=== PATIENT | male | born 1955 | race Caucasian/White ===

== ENCOUNTER 2017-04-15 10:08 | Outpatient (CLI) | payer OTHER ==
--- NOTE | 2017-04-15 12:40 | RAD ---
FOUR VIEWS CERVICAL SPINE: Date: 04-15-17 History: Follow up evaluation post neck surgery on 03-31-17. FINDINGS: C1 to the cervicothoracic junction was seen on the lateral and swimmer's views of the cervical spine . There are post-surgical changes related to anterior cervical fusion with anterior plate and screws transfixing C5-6 and C6-7 levels. Intradiscal prostheses are present at these levels. No hardware c omplication is seen. There is slight anterolisthesis of C3 on C4. There are prominent degenerative changes at this level, predominately on the right. There is narrowing of the C4-5 intervertebral disc space with osteophyt es seen anteriorly. No fracture is seen. The prevertebral soft tissues are within normal limits. Par tial visualization of cardiac pacemaking leads are noted. IMPRESSION: 1. Post-surgical changes related to anterior cervical fusion at the C5-6 and C6-7 levels. 2. Slight anterolisthesis of C3 on C4. POS: [facility]
== END 2017-04-15 10:09 | disposition home or self-care (01) ==
LOC: TBSIIMAG 10:08
PROVIDERS: ATTEND Physician Assistant
DX: M54.2 Cervicalgia (principal); M43.12 Spondylolisthesis, cervical region; Z98.1 Arthrodesis status
CPT/HCPCS: 72040

== ENCOUNTER 2017-05-27 15:03 | Outpatient (CLI) | payer OTHER ==
--- NOTE | 2017-05-27 16:33 | RAD ---
THREE VIEWS CERVICAL SPINE: Date: 05-27-17 Comparison: 04-15-17 History: Cervical region disc degeneration, evaluate cervical spine following surgery. FINDINGS: Incompletely imaged transvenous pacing device noted. Anterior discectomy and fusion hardware is pres ent at the C4-5/C6-7 level, grossly unchanged. Open mouth odontoid view demonstrates a normal appear ing dens and C1-2 articulation. There is mild anterolisthesis of C3 on C4 measuring in the 2-3 mm range, stable. There is disc space narrowing and anterior osteophyte formation at C3-4 and C4-5. The inferior aspect of the post-operative hardware is not fully assessed on the lateral examination secondary to overlying soft tissues. No swimmer's lateral view provided. IMPRESSION: Stable post-operative and degenerative change noted within the cervical spine. Please note that on t he lateral examination the inferior aspect of the fusion plate is not well seen secondary to overlyi ng soft tissues. No swimmer's lateral view is provided. Recommend consideration for follow up swimme r's lateral view to fully assess the post-operative hardware. Code T POS: [facility]
== END 2017-05-27 15:04 | disposition home or self-care (01) ==
LOC: TBSIIMAG 15:03
PROVIDERS: ATTEND Neurological Surgery
DX: M50.30 Other cervical disc degeneration, unspecified cervical region (principal); M47.892 Other spondylosis, cervical region; Z98.890 Other specified postprocedural states
CPT/HCPCS: 72040

== ENCOUNTER 2018-07-01 12:23 | Outpatient (CLI) | payer BC ==
--- NOTE | 2018-07-01 14:02 | RAD ---
THREE VIEWS LEFT SHOULDER: Date: 07-01-18 Comparison: None. History: Left sided shoulder pain. FINDINGS: Incompletely imaged cervical spine contusion hardware noted inferiorly. Partially visualized transven ous pacing device is present. Mild degenerative changes of the left acromioclavicular joint. No widen ing of the AC or CC interspace. No displaced fracture or dislocation. IMPRESSION: No acute osseous abnormality. POS: [facility]
--- NOTE | 2018-07-01 14:18 | RAD ---
3 VIEWS CERVICAL SPINE: Date: 07/01/18 COMPARISON: 05/27/17. HISTORY: Neck pain. FINDINGS: Anterior diskectomy infusion hardware present at C5-6/C6-7, stable. There is mild disc space narrowing and anterior osteophyte formation at C3-4 and C4-5. There is stable degenerative change at the atlantoaxial interspace. No prevertebral soft tissue swell ing. No evidence for hardware failure, displaced fracture, or dislocation. Open-mouth odontoid view d emonstrates a normal appearing dens and C1-2 articulation. \ There is multilevel cervical spine facet and uncovertebral osteophyte formation, right greater than l eft, most prominent at C2-3 and C3-4. IMPRESSION: Postoperative and degenerative change involving the cervical spine as above. POS: [facility]
== END 2018-07-01 12:24 | disposition home or self-care (01) ==
LOC: BICRAD 12:23
PROVIDERS: ATTEND Family Medicine
DX: M25.572 Pain in left ankle and joints of left foot (principal); M79.12 Myalgia of auxiliary muscles, head and neck; G60.9 Hereditary and idiopathic neuropathy, unspecified; M47.812 Spondylosis without myelopathy or radiculopathy, cervical region; Z98.890 Other specified postprocedural states
CPT/HCPCS: 72040

== ENCOUNTER 2018-08-06 11:36 | Outpatient (CLI) | payer OTHER ==
--- NOTE | 2018-08-06 13:27 | MRI ---
MRI CERVICAL SPINE: HISTORY: Cervical radicular pain. TECHNIQUE: Multiplanar, multisequence noncontrast-enhanced MRI images of cervical spine obtained. RADIOGRAPHIC FINDINGS: Images demonstrate ACDF with anterior fusion of the C5, 6, and 7 vertebral levels. The spinal cord is unremarkable with no evidence of cord masses. C1-2: Unremarkable. C2-3: There is a broad-based central disk-osteophyte complex resulting in minimal compression of the thecal sac. There is moderate to severe bilateral neural foraminal narrowing due to uncovertebral o steophyte hypertrophy. The neural foraminal stenosis is slightly worse on the right and similar in a ppearance on the left. C3-4: There is a broad-based disk-osteophyte complex centrally compressing the thecal sac resulting in a moderate degree of central stenosis. There is moderate to severe bilateral C3-4 neural foramina l narrowing due to uncovertebral osteophyte hypertrophy. C4-5: There is a broad-based disk-osteophyte complex seen in the right C4-5 paracentral region compr essing the thecal sac resulting in moderate cord compression. There is mild right and no significant left-sided neural foraminal narrowing. C5-6: There is a broad-based disk-osteophyte complex centrally resulting in minimal but not signific ant degree of central stenosis. Mild right and moderate to severe left C5-6 neural foraminal narrowi ng seen due to uncovertebral osteophyte hypertrophy. C6-7: There is disk desiccation. There is a broad-based disk-osteophyte complex centrally compressi ng the thecal sac and resulting in mild compression of the spinal cord. There is a moderate right an d mild to moderate left-sided C6-7 neural foraminal narrowing. C7-T1: Unremarkable. IMPRESSION: C5, 6, and 7 anterior cervical diskectomy and fusion with central and neural foraminal narrowing as d escribed above. POS: [facility]
== END 2018-08-06 11:37 | disposition home or self-care (01) ==
LOC: MRI 11:36
PROVIDERS: ATTEND Neurological Surgery
DX: M54.12 Radiculopathy, cervical region (principal); M48.02 Spinal stenosis, cervical region; Z98.1 Arthrodesis status
CPT/HCPCS: 72141

== ENCOUNTER 2018-08-31 15:57 | Outpatient (CLI) | payer OTHER ==
[2018-08-31 16:29] LABS: Mean Corpuscular Hemoglobin 31.7 pg (27.0-31.0); Mean Corpuscular Volume 93.4 fL (78.0-98.0); Mean Platelet Volume 7.3 fL (7.4-10.4); Platelet Count 199 thou/uL (130-400); RBC Distribution Width 11.7 % (11.5-14.5); Red Blood Cell (RBC) Count 4.72 mill/uL (4.70-6.10); White Blood Cell (WBC) Count 10.5 thou/uL (4.8-10.8)
[2018-08-31 16:58] LABS: Anion Gap 14 mmol/L (10-20); BUN (Urea Nitrogen) 13 mg/dL (8.4-25.7); Calc. Creatinine Clearance 0 mL/min (70-130); Calcium 9.7 mg/dL (7.8-10.44); Carbon Dioxide 23 mmol/L (23-31); Chloride 109 mmol/L (98-107); Estimated GFR-MDRD 73; Glucose 110 mg/dL (80-115); Potassium 4.3 mmol/L (3.5-5.1); Sodium 142 mmol/L (136-145)
== END 2018-08-31 15:58 | disposition home or self-care (01) ==
LOC: LABBT 15:57
PROVIDERS: ATTEND Neurological Surgery
DX: Z01.818 Encounter for other preprocedural examination (principal); M54.12 Radiculopathy, cervical region
CPT/HCPCS: 80048; 85027; 93005; 93010

== ENCOUNTER 2018-08-31 16:00 | Inpatient (IN) | payer OTHER ==
[2018-08-31 16:18] VITALS: BMI 31.7
[2018-09-07] MEDS ORDERED: Rocuronium Bromide 10 MG/ML (10ML VIAL) ONE (11:31)
[2018-09-07] MEDS ORDERED: Ondansetron PF 4 MG/2 ML Vial ONE (11:31)
[2018-09-07] MEDS ORDERED: PROPOFOL 200 MG/20 ML VIAL ONE (11:31)
[2018-09-07] MEDS ORDERED: Glycopyrrolate 0.2 MG/ML 5 ML SYRINGE ONE (11:31)
[2018-09-07] MEDS ORDERED: Sodium Chloride 0.9% 10 ML ONE (12:21)
[2018-09-07] MEDS ORDERED: Fentanyl 250 MCG/5 ML VIAL ONE (12:26)
[2018-09-07] MEDS ORDERED: Ondansetron HCl/PF 4 MG/2 ML Vial IVP PRN (13:47)
[2018-09-07] MEDS ORDERED: Promethazine HCl 25 MG/ML VIAL SLOW IVP PRN (13:47)
[2018-09-07] MEDS ORDERED: Promethazine HCl 25 MG/ML VIAL IM PRN ×2 (13:47→16:56)
[2018-09-07] MEDS ORDERED: Fentanyl 100 MCG/2 ML VIAL ONE ×2 (14:10→14:55)
[2018-09-07] MEDS ORDERED: Promethazine HCl 25 MG/ML VIAL ONE (15:45)
--- NOTE | 2018-09-07 16:23 | OP ---
DATE OF PROCEDURE: 09/07/2018 [employer]: [employer]. PROCEDURES: 1. Removal of hardware, C5 through C7. 2. Exploration of spinal fusion, C5 through C7. 3. Anterior cervical diskectomy, C4-C5. 4. Interbody arthrodesis. 5. Intervertebral biomechanical device. 6. Local morselized autograft. 7. Demineralized bone matrix. 8. Anterior titanium instrumentation C4 through C7. DESCRIPTION OF PROCEDURE: The patient was brought to the operating room and intubated, positioned supine with the head in modest extension on a gel-filled donut. An incision was made in the right precervical area and dissected medial to the sternocleidomastoid muscle. We identified the previous plate. This was removed without difficulty and then the region explored and found not to be fused. We next placed distraction across C4-C5, debrided osteophytes, and completely removed the intervertebral disk. The bony endplates were then decorticated for the purpose of arthrodesis and appropriate-sized intervertebral biomechanical device was brought into the field with demineralized bone matrix, local morselized autograft, and tapped in place securely at C4-C5. Next, an anterior plate was brought onto the field and secured to C4, C5, C6, and C7 using two 14-mm screws at each level. The wound was then extensively irrigated and maximum hemostasis was secured. The wound was closed in anatomic layers over drain. Job ID: [id number]
[2018-09-07] MEDS ORDERED: tiZANidine HCl 4 MG TAB PO PRN (16:56)
[2018-09-07] MEDS ORDERED: Milk Of Magnesia 30 ML UDCUP PO PRN (16:56)
[2018-09-07] MEDS ORDERED: Acetaminophen 325 MG TAB PO PRN (16:56)
[2018-09-07] MEDS ORDERED: Acetaminophen 650 MG Suppository PR PRN (16:56)
[2018-09-07] MEDS ORDERED: Promethazine HCl 12.5 MG SUPP PR PRN (16:56)
[2018-09-07] MEDS ORDERED: Ondansetron PF 4 MG/2 ML Vial IVP PRN (16:56)
[2018-09-07] MEDS ORDERED: Acetaminophen/Codeine 30-300mg Tablet PO PRN ×2 (16:56)
[2018-09-07] MEDS ORDERED: Morphine 4 MG/ML VIAL SLOW IVP PRN (16:56)
[2018-09-07] MEDS ORDERED: Promethazine 25 MG TAB PO PRN (16:56)
[2018-09-07] MEDS ORDERED: Mag-Al 1200 mg/1200 mg/30 ML UDCUP PO PRN (16:56)
[2018-09-07] MEDS ORDERED: Calcium Polycarbophil 625 MG TAB PO PRN (17:02)
[2018-09-07] MEDS ORDERED: Meloxicam 15 MG TAB PO PRN (17:04)
--- NOTE | 2018-09-07 18:16 | PDOC.FPRHP ---
- History of Present Illness Chief Complaint: consult for medical management History of Present Illness: 62 y/o M with HLD, SSS, seen today after cervical spinal surgery. Does have a history of cervical surgery in the past x1. Our service was consulted for medical management. Noted pt is on Lipitor 40mg daily, Setia QOD, Lisinopril, and Mg at night for restless leg syndrome. He currently complains of neck pain post op. He states he does not take medications for SSS. He denies any other problems. Denies CP, SOB, fevers chills. VS have been stable on floor on Room Oxygenation. - Allergies/Adverse Reactions Allergies Allergy/AdvReac Type Severity Reaction Status Date / Time codeine Allergy Intermediate HEAD Verified 08/31/18 16:15 PRESSURE, NAUSEA diphenhydramine HCl Allergy Intermediate AGITATION Verified 08/31/18 16:15 [From Benadryl] hydrocodone Allergy Intermediate HEAD Verified 08/31/18 16:15 PRESSURE/ NAUSEA tramadol Allergy Intermediate NAUSEA/DIZZINESS, Verified 08/31/18 16:15 HEAD PRESSURE - Home Medications Medication Instructions Recorded Confirmed Type Multivitamin [Multi-Vitamin Daily] 1 tablet PO DAILY 01/24/14 08/31/18 History Cholecalciferol (Vitamin D3) 5,000 unit PO DAILY 07/12/15 08/31/18 History [Vitamin D3] Cyanocobalamin (Vitamin B-12) 5,000 mcg PO DAILY 07/12/15 08/31/18 History [Vitamin B12] Fish Oil 1,000 mg PO DAILY 07/12/15 08/31/18 History Calcium Polycarbophil [Fiber 1,250 mg PO DAILY PRN 03/19/17 08/31/18 History Tablets] Meloxicam 15 mg PO PRN PRN 03/19/17 08/31/18 History RABEprazole Sodium [Aciphex] 20 mg PO DAILY 03/19/17 08/31/18 History Ezetimibe [Zetia] 10 mg PO Q2D 08/31/18 08/31/18 History Lisinopril 20 mg PO DAILY 08/31/18 08/31/18 History Simvastatin [Zocor] 40 mg PO Q2D 08/31/18 08/31/18 History - History PMHx: PSHx: FHx: Social: - Review of Systems General: denies: fever/chills, weight/appetite/sleep changes Eyes: denies: eye pain, vision changes ENT: denies: nasal congestion, rhinorrhea Respiratory: denies: cough, congestion Cardiovascular: denies: chest pain, palpitation, edema Gastrointestinal: denies: nausea, vomiting, diarrhea Genitourinary: denies: dysuria Skin: denies: rashes Musculoskeletal: reports: pain (neck). denies: tenderness Neurological: denies: numbness, syncope Psychological: denies: anxiety, depression - Vital signs BP: 138/78 HR: 97 Tmax: 97.5 Pox: 94% on RA - Physical Exam Constitutional: NAD, awake, alert and oriented, well developed HEENT: normocephalic and atraumatic, PERRLA, EOMI Neck: other (limited ROM 2/2 surgery, anterior bandage in place.) Chest: no-tender to palpation, no lesions Heart: RRR, normal S1/S2, no murmurs/rubs/gallops Lungs: CTAB, no respiratory distress, good air movement Abdomen: soft, non-tender, bowel sounds present Musculoskeletal: normal structure Neurological: no focal deficit, CN II-XII intact, normal sensation Skin: no rash/lesions, good turgor, capillary refill <2 seconds FMR H&P: A/P - Problem List (1) Hypertension Current Visit: Yes Status: Acute Code(s): I10 - ESSENTIAL (PRIMARY) HYPERTENSION (2) Hyperlipidemia Current Visit: Yes Status: Acute Code(s): E78.5 - HYPERLIPIDEMIA, UNSPECIFIED (3) GERD (gastroesophageal reflux disease) Current Visit: No Status: Chronic Code(s): K21.9 - GASTRO-ESOPHAGEAL REFLUX DISEASE WITHOUT ESOPHAGITIS Qualifiers: Esophagitis presence: without esophagitis Qualified Code(s): K21.9 - Gastro -esophageal reflux disease without esophagitis (4) Sick sinus syndrome Current Visit: No Status: Chronic Code(s): I49.5 - SICK SINUS SYNDROME - Plan 62 y/o M admitted for surgical intervention of cervical spine. 1. POD #0 after C-Spine surgery: Pain control per surgery. Tolerating regular diet well. 2. HTN: Controlled: will resume Lisinopril in AM 3. HLD: Recommend resuming home dose of Atorvastatin 40mg daily upon discharge. 4. Sick Sinus Syndrome: No acute issues and not on any medications. Continue to monitor. 5. GERD: Diet controlled. Medications PRN DISPO: pt cleared from our point of view for discharge tomorrow per surgery. Home medications reviewed and resumed.
[2018-09-07] MEDS: Ketorolac Tromethamine 30 MG/ML VIAL IVP SCH ×2 (18:36→23:36)
[2018-09-07] MEDS: Sodium Chloride 0.9% 1,000 ML IV SCH (20:02)
[2018-09-07] MEDS: CEFAZOLIN 2 GM in Premix Bag 1 BAG IVPB SCH (20:02)
[2018-09-07] MEDS ORDERED: Atorvastatin Calcium 20 MG TAB PO SCH (21:00)
[2018-09-08] MEDS: CEFAZOLIN 2 GM in Premix Bag 1 BAG IVPB SCH (04:11)
[2018-09-08] MEDS: Ketorolac Tromethamine 30 MG/ML VIAL IVP SCH (06:28)
[2018-09-08] MEDS: Sodium Chloride 0.9% 1,000 ML IV SCH (06:28)
--- NOTE | 2018-09-08 08:12 | PDOC.FM ---
- Subjective Subjective: Seen at bedside this morning sitting comfortably eating breakfast. Complains of minimal surgical site pain. Denies all other symptoms in ROS. No acute event over night. - Objective MAR Reviewed: Yes Vital Signs & Weight: Vital Signs (12 hours) Temp Pulse Resp BP Pulse Ox 09/08/18 04:16 98.1 F 92 16 135/81 94 L 09/07/18 23:33 97.4 F L 90 18 126/78 94 L Weight Weight 97.522 kg I&O: 09/07/18 09/08/18 09/09/18 06:59 06:59 06:59 Intake Total 1200 Output Total 45 Balance 1155 Phys Exam - Physical Examination Constitutional: NAD HEENT: sclera anicteric Pain with ROM. Right anterior surgical wound dressed with drain in place Respiratory: clear to auscultation bilateral Cardiovascular: RRR Gastrointestinal: soft, non-tender, no distention Musculoskeletal: no edema Neurological: moves all 4 limbs Psychiatric: A&O x 3 Dx/Plan (1) Hyperlipidemia Code(s): E78.5 - HYPERLIPIDEMIA, UNSPECIFIED Status: Acute (2) Hypertension Code(s): I10 - ESSENTIAL (PRIMARY) HYPERTENSION Status: Acute (3) GERD (gastroesophageal reflux disease) Code(s): K21.9 - GASTRO-ESOPHAGEAL REFLUX DISEASE WITHOUT ESOPHAGITIS Status: Chronic Qualifiers: Esophagitis presence: without esophagitis Qualified Code(s): K21.9 - Gastro -esophageal reflux disease without esophagitis (4) Sick sinus syndrome Code(s): I49.5 - SICK SINUS SYNDROME Status: Chronic - Plan Plan: 62 y/o M admitted for surgical intervention of cervical spine. 1. POD #1 after C-Spine surgery: Pain is controlled, pt tolerating regular diet well. 2. HTN: Controlled: restart home meds 3. HLD: Recommend resuming home dose of Atorvastatin 40mg daily upon discharge. 4. Sick Sinus Syndrome: No acute issues and not on any medications. Continue to monitor. 5. GERD: Diet controlled. Medications PRN DISPO: pt ready to dc from medical perspective. Home medications reviewed and resumed. Addendum - Attending - Attending Attestation Date/Time: 09/08/18 1101 I discussed the management with Dr. Thayer. Patient discharged before I saw him. I agree with the History, Examination, Assessment and Plan documented above with any addition or exceptions noted below.
[2018-09-08 08:26] VITALS: BP 120/75; TEMP 97.8
--- NOTE | 2018-09-08 08:40 | DIS ---
DATE OF ADMISSION: 09/07/2018 DATE OF DISCHARGE: 09/08/2018 HISTORY OF PRESENT ILLNESS: The patient is a 62-year-old male who underwent removal of hardware, extension of cervical fusion at C4-C5. Intraoperatively, he had a BRIANA drain placed, which had 45 mL of output overnight. The patient was transitioned to [facility] where his pain was well controlled with p.o. medications, he was tolerating regular diet, and voiding appropriately. The patient is awake, alert, comfortable this morning. He has free active range of motion of all extremities. No focal motor weakness. Sensation intact to light touch. Incision is soft, dry, intact. PLAN: Dismiss the patient to home. Discussed home care precautions. We will remove BRIANA drain prior to dismissal. Job ID: [id number]
[2018-09-08] MEDS ORDERED: Lisinopril 20 MG TAB PO SCH (09:00)
[2018-09-08] MEDS ORDERED: Cyanocobalamin (Vitamin B-12) 1,000 MCG TAB PO SCH (09:00)
[2018-09-08] MEDS ORDERED: Fish Oil 1,000 MG CAP PO SCH (09:00)
[2018-09-08] MEDS ORDERED: Multivit, Therapeutic 1 TAB PO SCH (09:00)
[2018-09-08] MEDS ORDERED: Ezetimibe 10 MG TAB PO SCH (09:00)
== END 2018-09-08 08:57 | disposition home or self-care (01) | DRG 30 ==
LOC: SURG A 09-07 08:44 → SJJU 09-07 15:47
PROVIDERS: ADMIT Neurological Surgery; ATTEND Neurological Surgery
PROC: 0RG1070 Fusion of Cervical Vertebral Joint with Autologous Tissue Substitute, Anterior Approach, Anterior Column, Open Approach (ICD-10-PCS; principal; 2018-09-07)
PROC: 0RT30ZZ Resection of Cervical Vertebral Disc, Open Approach (ICD-10-PCS; 2018-09-07)
PROC: 0RP30JZ Removal of Synthetic Substitute from Cervical Vertebral Disc, Open Approach (ICD-10-PCS; 2018-09-07)
DX: M54.12 Radiculopathy, cervical region (principal); I10 Essential (primary) hypertension; E78.5 Hyperlipidemia, unspecified; K21.9 Gastro-esophageal reflux disease without esophagitis; I49.5 Sick sinus syndrome; Z88.5 Allergy status to narcotic agent; Z88.8 Allergy status to other drugs, medicaments and biological substances; Z95.0 Presence of cardiac pacemaker
CPT/HCPCS: 76000; C1713; C1776; J1885; J2270; J2405; J2550; J2704; J3010; J3490

== ENCOUNTER 2018-09-22 10:23 | Outpatient (CLI) | payer OTHER ==
--- NOTE | 2018-09-22 12:32 | RAD ---
EXAM: CERVICAL SPINE THREE VIEWS: History: Cervical radiculopathy. Cervical radicular pain. Comparison: 07-01-18 FINDINGS: Anterior cervical fusion changes are noted at C4, C5, C6, and C7. No abnormal prevertebral soft tissu e swelling. No significant malalignment. Portions of C1 and odontoid are obscured on the AP open mout h view and C7 and T1 are partially obscured on the lateral views. IMPRESSION: Anterior cervical fusion changes at C4 through C7. No significant malalignment. POS: [facility]
== END 2018-09-22 10:24 | disposition home or self-care (01) ==
LOC: TBSIIMAG 10:23
PROVIDERS: ATTEND Neurological Surgery
DX: M54.12 Radiculopathy, cervical region (principal); Z98.1 Arthrodesis status
CPT/HCPCS: 72040

== ENCOUNTER 2018-11-04 13:46 | Outpatient (CLI) | payer OTHER ==
--- NOTE | 2018-11-04 14:21 | RAD ---
Exam: 3 views cervical spine HISTORY: Disc degeneration. Surgery follow-up. Comparison 09/22/2018 FINDINGS: Predental space is normal. No prevertebral soft tissue swelling. Stable cervical fusion ivon nges from C4 through C7. Stable disc prosthesis. Stable straightening of normal cervical lordosis. No malalignment. In the AP projection, stable facet hypertrophy. Open-mouth projection is unchanged. IMPRESSION: Stable cervical fusion from C4 through C7.
== END 2018-11-04 13:47 | disposition home or self-care (01) ==
LOC: TBSIIMAG 13:46
PROVIDERS: ATTEND Neurological Surgery
DX: M50.30 Other cervical disc degeneration, unspecified cervical region (principal); Z98.1 Arthrodesis status
CPT/HCPCS: 72040

== ENCOUNTER 2022-01-03 14:02 | Outpatient (CLI) | payer MEDICARE | END 2022-01-03 14:03 | disposition home or self-care (01) | LOC: LABBT 14:02 | PROVIDERS: ATTEND Ophthalmology Retina Specialist | DX: H35.372 Puckering of macula, left eye (principal); Z20.822 Contact with and (suspected) exposure to COVID-19 | CPT/HCPCS: U0003; U0005 ==

== ENCOUNTER 2022-01-08 06:03 | Day surgery (SDC) | payer MEDICARE ==
[2022-01-07 09:16] VITALS: BMI 32.5
[~2022-01-08 06:03] MED LIST: EPINEPHrine 0.3 MG in Ophthalmic Irrigation Solution 500 ML IRR SCH
[2022-01-08] MEDS ORDERED: Phenylephrine 2.5% Ophth Soln 5 ML BOT ONE (07:05)
[2022-01-08] MEDS ORDERED: Cyclopentolate 1% Opth Drop 2 ML BOT ONE (07:05)
[2022-01-08] MEDS ORDERED: Midazolam HCl 2 mg/2 ml Vial ONE (07:56)
[2022-01-08] MEDS ORDERED: fentaNYL Citrate/PF 100 MCG/2 ML SYRINGE ONE (07:56)
[2022-01-08] MEDS ORDERED: PROPOFOL 200 MG/20 ML VIAL ONE (08:15)
[2022-01-08] MEDS ORDERED: CEFAZOLIN 1 GM VIAL ONE (08:15)
[2022-01-08] MEDS ORDERED: Triamcinolone 40 MG/ML VIAL ONE (08:15)
[2022-01-08] MEDS ORDERED: Lidocaine 4% PF 5 ML AMP ONE (08:15)
[2022-01-08] MEDS ORDERED: Lidocaine 1% PF 5 ML VIAL ONE (08:15)
[2022-01-08] MEDS ORDERED: Indocyanine Green 25 MG/10 ML VIAL ONE (08:15)
[2022-01-08] MEDS ORDERED: Maxitrol 0.1% Opth Oint 3.5 GM TUBE ONE (08:15)
[2022-01-08] MEDS ORDERED: Bupivacaine 0.75% 10 ML VIAL ONE (08:15)
== END 2022-01-08 09:15 | disposition home or self-care (01) ==
LOC: SDC 06:03
PROVIDERS: ATTEND Ophthalmology Retina Specialist
PROC: 08T53ZZ Resection of Left Vitreous, Percutaneous Approach (ICD-10-PCS; principal; 2022-01-08)
PROC: 08NF3ZZ Release Left Retina, Percutaneous Approach (ICD-10-PCS; 2022-01-08)
DX: H35.372 Puckering of macula, left eye (principal); Z79.899 Other long term (current) drug therapy; Z88.5 Allergy status to narcotic agent; Z88.8 Allergy status to other drugs, medicaments and biological substances; Z95.0 Presence of cardiac pacemaker; Z98.1 Arthrodesis status
CPT/HCPCS: J0171; J0690; J2250; J2704; J3301; J3490

== ENCOUNTER 2022-07-08 09:40 | Inpatient (IN) | payer MEDICARE ==
[2022-07-08 10:41] LABS: #Eosinphils 0.2 thou/uL (0.0-0.7); #Lymphocytes 0.9 thou/uL (1.20-3.40); #Monocytes 0.6 thou/uL (0.11-0.59); #Neutrophils 9.2 thou/uL (1.40-6.50); %Basophils 0.1 % (0.0-1.0); %Eosinophils 1.5 % (0.0-10.0); %Lymphocytes 8.5 % (21.0-51.0); %Monocytes 5.4 % (0.0-10.0); %Neutrophils 84.6 % (42.0-75.0); Hemoglobin 14.6 g/dL (14.0-18.0); Mean Corpuscular HGB CONC 32.8 g/dL (32.0-36.0); Mean Corpuscular Hemoglobin 30.9 pg (27.0-31.0); Mean Corpuscular Volume 94.2 fl (78.0-98.0); Mean Platelet Volume 7.2 fL (7.4-10.4); Platelet Count 200 10x3/uL (130-400); Red Blood Cell (RBC) Count 4.74 mill/uL (4.70-6.10); White Blood Cell (WBC) Count 10.9 10x3/uL (4.8-10.8)
[2022-07-08 11:00] LABS: ALT (SGPT) 59 U/L (8-55); AST (SGOT) 40 U/L (5-34); Alkaline Phosphatase 69 U/L (40-110); Anion Gap 15 mmol/L (10-20); BUN (Urea Nitrogen) 19 mg/dL (8.4-25.7); Bilirubin, Total 1.2 mg/dL (0.2-1.2); Calc. Creatinine Clearance 0 mL/min (70-130); Calcium 9.5 mg/dL (7.8-10.44); Carbon Dioxide 20 mmol/L (23-31); Chloride 107 mmol/L (98-107); Estimated GFR 97; Globulin 3.5 g/dL (2.4-3.5); Glucose 138 mg/dL (80-115); Lipase 20 U/L (8-78); Magnesium 1.8 mg/dL (1.6-2.6); Potassium 3.6 mmol/L (3.5-5.1); Protein, Total 6.5 g/dL (5.8-8.1); Sodium 138 mmol/L (136-145)
[2022-07-08] MEDS ORDERED: Dexamethasone 10 MG/ML VIAL ONE (11:30)
[2022-07-08 13:20] VITALS: BMI 28.8
[2022-07-08] MEDS ORDERED: REMDESIVIR 200 MG in Sodium Chloride 0.9% 250 ML 210 ML IV SCH (13:30)
[2022-07-08 16:12] LABS: SARS-CoV-2 NAA Rapid Test DETECTED (NotDetected)
[2022-07-08] MEDS: Icosapent Ethyl 1 GM CAPSULE PO SCH (19:51)
[2022-07-09 07:08] LABS: Hemoglobin 14.9 g/dL (14.0-18.0); Mean Corpuscular HGB CONC 33.1 g/dL (32.0-36.0); Mean Corpuscular Hemoglobin 31.4 pg (27.0-31.0); Mean Corpuscular Volume 94.7 fl (78.0-98.0); Mean Platelet Volume 7.1 fL (7.4-10.4); Platelet Count 210 10x3/uL (130-400); Red Blood Cell (RBC) Count 4.76 mill/uL (4.70-6.10); White Blood Cell (WBC) Count 10.3 10x3/uL (4.8-10.8)
[2022-07-09 07:12] LABS: ALT (SGPT) 44 U/L (8-55); AST (SGOT) 27 U/L (5-34); Alkaline Phosphatase 68 U/L (40-110); Anion Gap 16 mmol/L (10-20); BUN (Urea Nitrogen) 17 mg/dL (8.4-25.7); Bilirubin, Total 0.9 mg/dL (0.2-1.2); Calc. Creatinine Clearance 112 mL/min (70-130); Calcium 9.9 mg/dL (7.8-10.44); Carbon Dioxide 19 mmol/L (23-31); Chloride 107 mmol/L (98-107); Estimated GFR 97; Globulin 3.8 g/dL (2.4-3.5); Glucose 139 mg/dL (80-115); Protein, Total 6.8 g/dL (5.8-8.1); Sodium 138 mmol/L (136-145)
[2022-07-09] MEDS: REMDESIVIR 100 MG in Sodium Chloride 0.9% 250 ML 230 ML IV SCH (07:47)
[2022-07-09] MEDS: Lisinopril 20 MG TAB PO SCH (08:36)
[2022-07-09] MEDS: Dexamethasone 4 MG TAB PO SCH (08:37)
[2022-07-09] MEDS: Enoxaparin Sodium 40 MG/0.4 ML SYRINGE SC SCH (08:37)
[2022-07-09] MEDS: Ezetimibe 10 MG TAB PO SCH (08:37)
[2022-07-09] MEDS: Icosapent Ethyl 1 GM CAPSULE PO SCH ×2 (08:38→20:18)
[2022-07-09 11:17] LABS: Band 5 % (5-11); Lymphocytes 5 % (21-51); MDiff Complete? YES; Monocytes 2 % (0-10); Neutrophil 87 % (42-75); RBC Morphology Normal; Reactive Lymphocytes 1 % (0-10)
[2022-07-10 07:19] LABS: #Basophils 0.2 thou/uL (0.0-0.2); #Lymphocytes 0.8 thou/uL (1.20-3.40); #Monocytes 0.7 thou/uL (0.11-0.59); %Basophils 1.1 % (0.0-1.0); %Eosinophils 0.1 % (0.0-10.0); %Lymphocytes 4.6 % (21.0-51.0); %Monocytes 4.4 % (0.0-10.0); %Neutrophils 89.9 % (42.0-75.0); Hemoglobin 14.1 g/dL (14.0-18.0); Mean Corpuscular HGB CONC 32.9 g/dL (32.0-36.0); Mean Corpuscular Hemoglobin 31.2 pg (27.0-31.0); Mean Corpuscular Volume 94.7 fl (78.0-98.0); Mean Platelet Volume 7.6 fL (7.4-10.4); Platelet Count 237 10x3/uL (130-400); RBC Distribution Width 11.7 % (11.5-14.5); Red Blood Cell (RBC) Count 4.53 mill/uL (4.70-6.10); White Blood Cell (WBC) Count 16.6 10x3/uL (4.8-10.8)
[2022-07-10 07:37] LABS: ALT (SGPT) 38 U/L (8-55); AST (SGOT) 22 U/L (5-34); Albumin 2.9 g/dL (3.4-4.8); Alkaline Phosphatase 61 U/L (40-110); Anion Gap 16 mmol/L (10-20); BUN (Urea Nitrogen) 20 mg/dL (8.4-25.7); Bilirubin, Total 0.7 mg/dL (0.2-1.2); Calc. Creatinine Clearance 109 mL/min (70-130); Calcium 9.2 mg/dL (7.8-10.44); Carbon Dioxide 16 mmol/L (23-31); Chloride 109 mmol/L (98-107); Estimated GFR 96; Globulin 3.5 g/dL (2.4-3.5); Glucose 127 mg/dL (80-115); Potassium 4.1 mmol/L (3.5-5.1); Protein, Total 6.4 g/dL (5.8-8.1); Sodium 137 mmol/L (136-145)
[2022-07-10] MEDS: Lisinopril 20 MG TAB PO SCH (07:45)
[2022-07-10] MEDS: REMDESIVIR 100 MG in Sodium Chloride 0.9% 250 ML 230 ML IV SCH (07:45)
[2022-07-10] MEDS: Enoxaparin Sodium 40 MG/0.4 ML SYRINGE SC SCH (08:23)
[2022-07-10] MEDS: Dexamethasone 4 MG TAB PO SCH (08:23)
[2022-07-10] MEDS: Icosapent Ethyl 1 GM CAPSULE PO SCH ×2 (08:23→19:54)
[2022-07-10] MEDS: Ezetimibe 10 MG TAB PO SCH (08:23)
[2022-07-11 06:26] LABS: #Monocytes 0.9 thou/uL (0.11-0.59); #Neutrophils 10.8 thou/uL (1.40-6.50); %Eosinophils 0.2 % (0.0-10.0); %Lymphocytes 7.7 % (21.0-51.0); %Monocytes 6.9 % (0.0-10.0); %Neutrophils 85.3 % (42.0-75.0); Hemoglobin 13.9 g/dL (14.0-18.0); Mean Corpuscular HGB CONC 33.2 g/dL (32.0-36.0); Mean Corpuscular Hemoglobin 31.4 pg (27.0-31.0); Mean Corpuscular Volume 94.6 fl (78.0-98.0); Mean Platelet Volume 7.3 fL (7.4-10.4); Platelet Count 236 10x3/uL (130-400); RBC Distribution Width 11.7 % (11.5-14.5); Red Blood Cell (RBC) Count 4.44 mill/uL (4.70-6.10); White Blood Cell (WBC) Count 12.7 10x3/uL (4.8-10.8)
[2022-07-11 06:43] LABS: ALT (SGPT) 37 U/L (8-55); AST (SGOT) 18 U/L (5-34); Albumin 2.9 g/dL (3.4-4.8); Alkaline Phosphatase 62 U/L (40-110); Anion Gap 15 mmol/L (10-20); BUN (Urea Nitrogen) 23 mg/dL (8.4-25.7); Bilirubin, Total 0.9 mg/dL (0.2-1.2); Calc. Creatinine Clearance 113 mL/min (70-130); Calcium 9.3 mg/dL (7.8-10.44); Carbon Dioxide 20 mmol/L (23-31); Chloride 108 mmol/L (98-107); Estimated GFR 97; Globulin 3.3 g/dL (2.4-3.5); Glucose 105 mg/dL (80-115); Potassium 3.9 mmol/L (3.5-5.1); Protein, Total 6.2 g/dL (5.8-8.1); Sodium 139 mmol/L (136-145)
[2022-07-11] MEDS: Dexamethasone 4 MG TAB PO SCH (08:21)
[2022-07-11] MEDS: Lisinopril 20 MG TAB PO SCH (08:22)
[2022-07-11] MEDS: Ezetimibe 10 MG TAB PO SCH (08:22)
[2022-07-11] MEDS: Enoxaparin Sodium 40 MG/0.4 ML SYRINGE SC SCH (08:23)
[2022-07-11] MEDS: Icosapent Ethyl 1 GM CAPSULE PO SCH ×2 (08:35→21:58)
[2022-07-12 07:22] LABS: #Lymphocytes 1.4 thou/uL (1.20-3.40); #Monocytes 0.8 thou/uL (0.11-0.59); #Neutrophils 8.1 thou/uL (1.40-6.50); %Basophils 0.2 % (0.0-1.0); %Eosinophils 0.4 % (0.0-10.0); %Lymphocytes 13.5 % (21.0-51.0); %Monocytes 7.6 % (0.0-10.0); %Neutrophils 78.2 % (42.0-75.0); Hemoglobin 14.4 g/dL (14.0-18.0); Mean Corpuscular HGB CONC 32.7 g/dL (32.0-36.0); Mean Corpuscular Hemoglobin 31.6 pg (27.0-31.0); Mean Corpuscular Volume 96.5 fl (78.0-98.0); Mean Platelet Volume 7.9 fL (7.4-10.4); Platelet Count 212 10x3/uL (130-400); RBC Distribution Width 12.1 % (11.5-14.5); Red Blood Cell (RBC) Count 4.56 mill/uL (4.70-6.10); White Blood Cell (WBC) Count 10.4 10x3/uL (4.8-10.8)
[2022-07-12 07:42] LABS: ALT (SGPT) 32 U/L (8-55); AST (SGOT) 22 U/L (5-34); Albumin 2.8 g/dL (3.4-4.8); Alkaline Phosphatase 60 U/L (40-110); Anion Gap 15 mmol/L (10-20); BUN (Urea Nitrogen) 22 mg/dL (8.4-25.7); Bilirubin, Total 0.9 mg/dL (0.2-1.2); Calc. Creatinine Clearance 109 mL/min (70-130); Calcium 9.3 mg/dL (7.8-10.44); Carbon Dioxide 17 mmol/L (23-31); Chloride 110 mmol/L (98-107); Estimated GFR 96; Globulin 3.5 g/dL (2.4-3.5); Glucose 89 mg/dL (80-115); Potassium 4.8 mmol/L (3.5-5.1); Protein, Total 6.3 g/dL (5.8-8.1); Sodium 137 mmol/L (136-145)
[2022-07-12] MEDS: Dexamethasone 4 MG TAB PO SCH (09:26)
[2022-07-12] MEDS: Lisinopril 20 MG TAB PO SCH (09:26)
[2022-07-12] MEDS: BARICITINIB 2 MG TAB PO SCH (09:27)
[2022-07-12] MEDS: Enoxaparin Sodium 40 MG/0.4 ML SYRINGE SC SCH (09:27)
[2022-07-12] MEDS: Ezetimibe 10 MG TAB PO SCH (09:27)
[2022-07-12] MEDS: Icosapent Ethyl 1 GM CAPSULE PO SCH ×2 (09:27→20:43)
[2022-07-13 06:18] LABS: #Lymphocytes 1.5 thou/uL (1.20-3.40); #Monocytes 0.7 thou/uL (0.11-0.59); %Eosinophils 0.4 % (0.0-10.0); %Lymphocytes 16.3 % (21.0-51.0); %Monocytes 7.9 % (0.0-10.0); %Neutrophils 75.4 % (42.0-75.0); Hemoglobin 13.8 g/dL (14.0-18.0); Mean Corpuscular HGB CONC 33.3 g/dL (32.0-36.0); Mean Corpuscular Hemoglobin 31.4 pg (27.0-31.0); Mean Corpuscular Volume 94.3 fl (78.0-98.0); Mean Platelet Volume 7.5 fL (7.4-10.4); Platelet Count 237 10x3/uL (130-400); RBC Distribution Width 11.8 % (11.5-14.5); White Blood Cell (WBC) Count 9.3 10x3/uL (4.8-10.8)
[2022-07-13 06:44] LABS: ALT (SGPT) 35 U/L (8-55); AST (SGOT) 18 U/L (5-34); Albumin 2.9 g/dL (3.4-4.8); Alkaline Phosphatase 56 U/L (40-110); Anion Gap 12 mmol/L (10-20); BUN (Urea Nitrogen) 23 mg/dL (8.4-25.7); Bilirubin, Total 0.8 mg/dL (0.2-1.2); Calc. Creatinine Clearance 112 mL/min (70-130); Calcium 9.1 mg/dL (7.8-10.44); Carbon Dioxide 21 mmol/L (23-31); Chloride 108 mmol/L (98-107); Estimated GFR 97; Globulin 3.2 g/dL (2.4-3.5); Glucose 98 mg/dL (80-115); Protein, Total 6.1 g/dL (5.8-8.1); Sodium 137 mmol/L (136-145)
[2022-07-13] MEDS: Dexamethasone 4 MG TAB PO SCH (08:31)
[2022-07-13] MEDS: BARICITINIB 2 MG TAB PO SCH (08:31)
[2022-07-13] MEDS: Enoxaparin Sodium 40 MG/0.4 ML SYRINGE SC SCH (08:31)
[2022-07-13] MEDS: Ezetimibe 10 MG TAB PO SCH (08:31)
[2022-07-13] MEDS: Icosapent Ethyl 1 GM CAPSULE PO SCH ×2 (08:31→20:35)
[2022-07-13] MEDS: Lisinopril 20 MG TAB PO SCH (08:31)
[2022-07-14 06:54] LABS: #Eosinphils 0.1 thou/uL (0.0-0.7); #Lymphocytes 2.6 thou/uL (1.20-3.40); #Monocytes 0.6 thou/uL (0.11-0.59); #Neutrophils 8.3 thou/uL (1.40-6.50); %Basophils 0.3 % (0.0-1.0); %Eosinophils 0.5 % (0.0-10.0); %Lymphocytes 22.5 % (21.0-51.0); %Monocytes 4.7 % (0.0-10.0); Hemoglobin 15.4 g/dL (14.0-18.0); Mean Corpuscular HGB CONC 33.6 g/dL (32.0-36.0); Mean Corpuscular Hemoglobin 31.7 pg (27.0-31.0); Mean Corpuscular Volume 94.2 fl (78.0-98.0); Mean Platelet Volume 7.1 fL (7.4-10.4); Platelet Count 295 10x3/uL (130-400); RBC Distribution Width 11.9 % (11.5-14.5); Red Blood Cell (RBC) Count 4.84 mill/uL (4.70-6.10); White Blood Cell (WBC) Count 11.5 10x3/uL (4.8-10.8)
[2022-07-14 07:14] LABS: ALT (SGPT) 40 U/L (8-55); AST (SGOT) 24 U/L (5-34); Albumin 3.2 g/dL (3.4-4.8); Alkaline Phosphatase 58 U/L (40-110); Anion Gap 15 mmol/L (10-20); BUN (Urea Nitrogen) 20 mg/dL (8.4-25.7); Calc. Creatinine Clearance 103 mL/min (70-130); Calcium 9.3 mg/dL (7.8-10.44); Carbon Dioxide 19 mmol/L (23-31); Chloride 106 mmol/L (98-107); Estimated GFR 94; Globulin 3.4 g/dL (2.4-3.5); Glucose 101 mg/dL (80-115); Potassium 4.3 mmol/L (3.5-5.1); Protein, Total 6.6 g/dL (5.8-8.1); Sodium 136 mmol/L (136-145)
[2022-07-14] MEDS: Dexamethasone 4 MG TAB PO SCH (09:13)
[2022-07-14] MEDS: Enoxaparin Sodium 40 MG/0.4 ML SYRINGE SC SCH (09:13)
[2022-07-14] MEDS: Ezetimibe 10 MG TAB PO SCH (09:13)
[2022-07-14] MEDS: BARICITINIB 2 MG TAB PO SCH (09:13)
[2022-07-14] MEDS: Icosapent Ethyl 1 GM CAPSULE PO SCH ×2 (09:13→19:50)
[2022-07-14] MEDS: Lisinopril 20 MG TAB PO SCH (09:14)
[2022-07-14] MEDS ORDERED: Calcium Carbonate 500 MG ChewTAB PO SCH (20:30)
[2022-07-15 06:32] LABS: #Eosinphils 0.1 thou/uL (0.0-0.7); #Lymphocytes 1.7 thou/uL (1.20-3.40); #Monocytes 0.6 thou/uL (0.11-0.59); #Neutrophils 7.2 thou/uL (1.40-6.50); %Basophils 0.4 % (0.0-1.0); %Eosinophils 0.6 % (0.0-10.0); %Monocytes 5.9 % (0.0-10.0); %Neutrophils 75.1 % (42.0-75.0); Hemoglobin 15.1 g/dL (14.0-18.0); Mean Corpuscular HGB CONC 34.2 g/dL (32.0-36.0); Mean Corpuscular Volume 93.6 fl (78.0-98.0); Mean Platelet Volume 7.2 fL (7.4-10.4); Platelet Count 274 10x3/uL (130-400); RBC Distribution Width 11.9 % (11.5-14.5); White Blood Cell (WBC) Count 9.6 10x3/uL (4.8-10.8)
[2022-07-15 06:51] LABS: ALT (SGPT) 49 U/L (8-55); AST (SGOT) 21 U/L (5-34); Albumin 3.2 g/dL (3.4-4.8); Alkaline Phosphatase 59 U/L (40-110); Anion Gap 12 mmol/L (10-20); BUN (Urea Nitrogen) 23 mg/dL (8.4-25.7); Bilirubin, Total 1.2 mg/dL (0.2-1.2); Calc. Creatinine Clearance 107 mL/min (70-130); Calcium 9.3 mg/dL (7.8-10.44); Carbon Dioxide 23 mmol/L (23-31); Chloride 105 mmol/L (98-107); Estimated GFR 95; Globulin 3.3 g/dL (2.4-3.5); Glucose 94 mg/dL (80-115); Potassium 4.1 mmol/L (3.5-5.1); Protein, Total 6.5 g/dL (5.8-8.1); Sodium 136 mmol/L (136-145)
[2022-07-15] MEDS: Lisinopril 20 MG TAB PO SCH (07:30)
[2022-07-15] MEDS: Enoxaparin Sodium 40 MG/0.4 ML SYRINGE SC SCH (08:13)
[2022-07-15] MEDS: Icosapent Ethyl 1 GM CAPSULE PO SCH (08:13)
[2022-07-15] MEDS: Dexamethasone 4 MG TAB PO SCH (08:15)
[2022-07-15] MEDS: BARICITINIB 2 MG TAB PO SCH (08:15)
[2022-07-15] MEDS: Ezetimibe 10 MG TAB PO SCH (08:15)
[2022-07-15 08:34] VITALS: BP 109/70; TEMP 97.9
== END 2022-07-15 16:28 | disposition home or self-care (01) | DRG 177 ==
LOC: ERS 09:40 → T4-B 12:31
PROVIDERS: ADMIT Student in an Organized Health Care Education/Training Program; ATTEND Family Medicine
PROC: 8E0ZXY6 Isolation (ICD-10-PCS; 2022-07-08)
PROC: XW0DXM6 Introduction of Baricitinib into Mouth and Pharynx, External Approach, New Technology Group 6 (ICD-10-PCS; principal; 2022-07-12)
DX: U07.1 COVID-19 (principal); J12.82 Pneumonia due to coronavirus disease 2019; J96.01 Acute respiratory failure with hypoxia; I49.5 Sick sinus syndrome; K21.9 Gastro-esophageal reflux disease without esophagitis; E78.5 Hyperlipidemia, unspecified; I10 Essential (primary) hypertension; Z53.29 Procedure and treatment not carried out because of patient's decision for other reasons; R74.01 Elevation of levels of liver transaminase levels; Z28.310 Unvaccinated for COVID-19; Z88.6 Allergy status to analgesic agent; Z88.5 Allergy status to narcotic agent; Z88.8 Allergy status to other drugs, medicaments and biological substances; Z79.899 Other long term (current) drug therapy; Z82.49 Family history of ischemic heart disease and other diseases of the circulatory system; Z95.0 Presence of cardiac pacemaker
CPT/HCPCS: 36415; 71045; 80053; 82728; 83615; 83690; 83735; 83880; 84145; 85025; 86140; 87631; 93005; 94760; J1100; J1650; J8540; U0002